=== PATIENT | male | born 1995 | race Two or more races ===

== ENCOUNTER 2025-08-12 18:20 | Emergency (ER) | payer MEDICAID, SELFPAY ==
[2025-08-12 18:21] VITALS: BMI 33.3
[2025-08-12 18:59] VITALS: BP 129/79; PULSE 89; RESP 20; TEMP 37.3; O2SAT 97
[2025-08-12] MEDS: FAMOTIDINE 20 MG TABLET 40 MG PO (19:38)
[2025-08-12] MEDS: MethylPREDNISolone SOD SUCC 62.5 MG/ML 2ML VIAL 125 MG IM (19:39)
--- NOTE | 2025-08-12 19:49 | PD.EDALLER ---
ED Allergic Reaction RME/HPI General Chief complaint: Allergic Reaction Stated complaint: HIVES TO WHOLE BODY x 4 HOURS Time Seen by Provider: 08/12/25 18:26 Arrival date/time: 08/12/25 18:20 This is a case of 30-year-old male with no medical history came in in the emergency room due to generalized maculopapular urticarial rash for 4 hours no shortness of breath no facial or throat swelling patient can speak full sentences no drooling of saliva persistence of the symptoms this patient decided to sought consult here in the emergency room Limitations: no limitations Related Data Previous Rx's ?Medication ?Instructions ?Recorded diphenhydramine HCl 25 mg capsule 25 mg PO TID PRN allergic reaction 08/12/25 (Benadryl) #20 caps famotidine 20 mg tablet (Pepcid) 20 mg PO BID #10 tabs 08/12/25 prednisone 20 mg tablet See Taper PO QDAY 5 days #5 tabs 08/12/25 Allergies Allergy/AdvReac Type Severity Reaction Status Date / Time No Known Allergies Allergy Verified 08/12/25 18:23 Review of Systems Review of Systems Systems Reviewed: All systems reviewed, normal except as documented Constitutional Constitutional: Reports system reviewed and no additional complaints, except as documented and Reports as per HPI Cardiovascular Cardiovascular: Reports system reviewed and no additional complaints, except as documented and Reports as per HPI Respiratory Respiratory: Reports system reviewed and no additional complaints, except as documented and Reports as per HPI Gastrointestinal Gastrointestinal: Reports system reviewed and no additional complaints, except as documented and Reports as per HPI Genitourinary Genitourinary: Reports system reviewed and no additional complaints, except as documented and Reports as per HPI Musculoskeletal Musculoskeletal: Reports system reviewed and no additional complaints, except as documented and Reports as per HPI Integumentary/Breasts Skin/Breast: Reports other (rash) Neurologic Neurologic: Reports system reviewed and no additional complaints, except as documented and Reports as per HPI Past Medical History Social History SMOKING STATUS: Never smoker ED Exam General Limitations: Present no limitations General appearance: Present alert, in no apparent distress and other (Patient is awake alert oriented not in distress nontoxic looking well-hydrated well-nourished) Head Head exam: Present atraumatic, normocephalic and normal inspection Eye Eye exam: Present normal appearance, PERRL and EOMI ENT ENT exam: Present normal exam, normal oropharynx, mucous membranes moist and other (HEENT exam is normal no facial or throat swelling no drooling of saliva patient can speak full sentences) Neck Neck exam: Present normal inspection, full ROM and trachea midline; Absent tenderness, meningismus or lymphadenopathy Chest Chest inspection: Present normal inspection and symmetric chest wall rise; Absent tenderness Respiratory Respiratory exam: Present normal lung sounds bilaterally; Absent respiratory distress, wheezes, stridor, accessory muscle use or prolonged expiratory phase Cardiovascular Cardiovascular exam: Present regular rate, normal rhythm and normal heart sounds; Absent bradycardia, tachycardia, irregular rhythm, systolic murmur or diastolic murmur Abdominal Exam Abdominal exam: Present soft and normal bowel sounds; Absent distention, tenderness, guarding, rebound, rigidity, diminished bowel sounds, hyperactive bowel sounds, hypoactive bowel sounds or organomegaly Extremities Exam Extremities exam: Present normal inspection and full ROM Back Exam Back exam: Present normal inspection and full ROM Neurological Exam Neurological exam: Present alert, oriented X3, CN II-XII intact, normal gait and reflexes normal; Absent motor sensory deficit Psychiatric Psychiatric exam: Present normal affect and normal mood Skin Skin exam: Present warm, dry, intact, normal color and other (Patient noted to have generalized maculopapular urticarial rashes on the face neck chest abdomen back both upper and both lower extremities nonblanching suggestive of allergic urticaria no cellulitis no abscess) Course Quality Measures none Orders Category Date Time Status DiphenhydrAMINE INJ [Benadryl Inj] Med 08/12/25 19:05 Discontinued 50 mg IM X1 ONE Famotidine [Pepcid] Med 08/12/25 19:05 Discontinued 40 mg PO X1 ONE MethylPREDNISolone.* [SoluMEDROL Inj] Med 08/12/25 19:05 Discontinued 125 mg IM X1 ONE Vital Signs Vital signs: Vital Signs Temperature 99.2 F 08/12/25 18:59 Pulse Rate 89 08/12/25 18:59 Respiratory Rate 20 08/12/25 18:59 Blood Pressure 129/79 08/12/25 18:59 Pulse Oximetry (%) 97 08/12/25 18:59 Oxygen Delivery Method Room Air 08/12/25 18:59 Oxygen saturation is 97% in room air Allergic Reaction MDM Narrative MDM Narrative:: This is a case of 30-year-old male with no medical history came in in the emergency room due to generalized maculopapular urticarial rash for 4 hours no shortness of breath no facial or throat swelling patient can speak full sentences no drooling of saliva persistence of the symptoms this patient decided to sought consult here in the emergency room physical examination patient is awake alert oriented not in distress nontoxic looking well-hydrated well-nourished no facial or throat swelling HEENT exam is normal no drooling of saliva patient can speak full sentences lungs sound is clear no crackles no rales no retraction no stridor patient noted to have maculopapular urticarial rashes on the face neck chest abdomen back both upper and both lower extremities based on my physical examination and history patient symptoms suggestive of allergic urticaria patient was given Solu-Medrol Benadryl and Pepcid after 1 hour patient was reassessed rash is subsided no itchiness noted patient was advised to follow-up with PCP in 2 days for reevaluation and to be referred to literacy specialist for allergy testing recurrence persistent worsening symptoms or any emergent concern return precaution to the ER is advised Patient was discharged with comfortable condition walking with stable gait. Patient verbalized no further complains explained diagnosis and answered patient question. Patient is comfortable with the proposed management plan including the need to follow up with his/her primary care physician and any specialist if applicable Discussed patient for any urgent condition or worsening sx, He/She needed to go to emergency room immediately or call 911. Patient acknowledge the responsibility to follow up as instructed and to monitor her/his symptoms. For any persistence of the symptoms for more than 3-5 days return precaution advised. Discussed the result of the test and was given printed discharge instruction Patient data External records reviewed:: [facility] previous records Clinical information provided by:: patient Social determinants that could affect healthcare access:: none Patient has the following chronic illnesses:: None How is presenting disease/condition affected by chronic disease/condition?: no chronic disease Evaluation data The following diagnostics were reviewed and interpreted by me:: other (specify) Lab and/or radiology exams considered but not ordered:: None Interpretation Summary: None Medications / Prescriptions Medications or Prescriptions considered but not ordered:: Given Medication administrations:: Medication Administration History Discontinued Medications Diphenhydramine HCl (Diphenhydramine Inj 50 Mg/Ml Vial) 50 mg IM X1 ONE Stop: 08/12/25 19:06 Last Admin: 08/12/25 19:40 Dose: 50 mg Documented By: Famotidine (Famotidine 20 Mg Tablet) 40 mg PO X1 ONE Stop: 08/12/25 19:06 Last Admin: 08/12/25 19:38 Dose: 40 mg Documented By: Methylprednisolone Sodium Succinate (Methylprednisolone Sod Succ 62.5 Mg/Ml 2ml Vial) 125 mg IM X1 ONE Stop: 08/12/25 19:06 Last Admin: 08/12/25 19:39 Dose: 125 mg Documented By: Given Consultations Consultation(s) initiated? (list below): No Diagnosis Differential Diagnosis allergic reaction: allergic reaction, contact dermatitis and urticaria Most likely diagnosis given after review of the tests above:: Acute allergic urticaria Admission Indicated Admission indicated?: not indicated Explain why admission is indicated or not indicated:: Not indicated Admission Request Was there a request for admission?: No Admission Attestation Admission request attestation: Not indicated Disposition Plan Disposition Plan: Discharge Discharge Attestation Discharge Attestation: The patient and all family members were given an opportunity to ask questions and understood the discharge instructions. Discharge instructions specifically effects, indications for sooner follow up or return to the emergency department, and the expected course of current diagnosis. Patient condition: Stable Discharge Plan Plan Patient Disposition: HOME (Self Care) Patient condition on transfer: Stable Prescriptions/Referrals Prescriptions/Med Rec: New diphenhydramine HCl [Benadryl] 25 mg capsule 25 mg PO TID PRN (Reason: allergic reaction) Qty: 20 0RF prednisone 20 mg tablet See Taper PO QDAY 5 Days Qty: 5 0RF Taper: Prednisone Taper 20 mg DAILY for 2 Days and 0 Hour 10 mg DAILY for 2 Days and 0 Hour 5 mg DAILY for 7 Days and 0 Hour famotidine [Pepcid] 20 mg tablet 20 mg PO BID Qty: 10 0RF Referrals: No Primary/Family,Physician [Primary Care Provider] - In 1 week Problem List Clinical Impression: Allergic urticaria Patient/Caregiver Discharge Instructions Education Materials: ED Hives (Adult) Additional Instructions: Follow-up with your primary care physician in 2 days for reevaluation and to be referred to literacy specialist for allergy testing recurrence persistent worsening symptoms or any emergent concern call 911 or go to the nearest emergency room take your medication as directed keep hydrated use hypoallergenic soap and hypoallergenic laundry soap is advised Print Language: Malaysian Stand Alone Forms: Mony Award Info., Patient Portal Info Letter JANNET/OPERATIONS SUPERVISOR 2ND SHIFT Supervising Physician PA/OPERATIONS SUPERVISOR 2ND SHIFT Supervising Physician: dr rich [email or web address]
== END 2025-08-12 20:30 | disposition home or self-care (01) ==
PROVIDERS: Emergency Provider Emergency Medicine
DX: L50.0 Allergic urticaria (principal)
CPT/HCPCS: 96372; 99283; J1200; J2919; A9270